=== PATIENT | male | born 2000 | race Caucasian/White ===

== ENCOUNTER 2020-12-06 00:45 | Emergency (ER) | payer MEDICAID ==
[~2020-12-06] VITALS: Ht 190.5 cm; Wt 108.6 kg
[2020-12-06 01:04] VITALS: Ht 190.5 cm; Wt 108.6 kg
[2020-12-06] MEDS ORDERED: MOTION SICKNESS25 MG PO (02:00)
[2020-12-06 02:46] VITALS: BP 156/85
== END 2020-12-06 02:46 | disposition home or self-care (01) ==
LOC: ED 00:45
DX: H43.399 Other vitreous opacities, unspecified eye (principal); L72.3 Sebaceous cyst